=== PATIENT | male | born 1945 | race Caucasian/White ===

== ENCOUNTER 2021-02-13 20:49 | Inpatient (IN) | payer MEDICARE, BC ==
[2021-02-13 21:32] LABS: Hemoglobin 13.2 g/dL (13.5-17.5); Mean Corpuscular HGB CONC 34.1 g/dL (32.0-36.0); Mean Corpuscular Hemoglobin 31.1 pg (27.0-33.0); Mean Corpuscular Volume 91.1 fl (81.2-95.1); Mean Platelet Volume 10.2 fl (7.4-10.4); Platelet Count 406 10x3/uL (150-450); Red Blood Cell (RBC) Count 4.25 10x6/uL (4.32-5.72); White Blood Cell (WBC) Count 20.5 10x3/uL (3.5-10.5)
[2021-02-13 21:50] LABS: ALT (SGPT) Less than 6 U/L (8-55); AST (SGOT) 8 U/L (5-34); Albumin 3.6 g/dL (3.4-4.8); Alkaline Phosphatase 70 U/L (40-110); Anion Gap 10 mmol/L (10-20); BUN (Urea Nitrogen) 20 mg/dL (8.4-25.7); Band 2 % (5-11); Bilirubin, Total 1.2 mg/dL (0.2-1.2); CK (CPK) 89 U/L (30-200); Calc. Creatinine Clearance 0 mL/min (70-130); Calcium 8.5 mg/dL (7.8-10.44); Carbon Dioxide 24 mmol/L (23-31); Chloride 104 mmol/L (98-107); Globulin 2.4 g/dL (2.4-3.5); Glucose 141 mg/dL (83-110); Lymphocytes 15 % (21-51); Monocytes 10 % (0-10); Potassium 3.4 mmol/L (3.5-5.1); Reactive Lymphocytes 1 % (0-10); Sodium 135 mmol/L (136-145)
[2021-02-13 21:51] LABS: Neutrophil 72 % (42-75)
[2021-02-13 21:52] LABS: Large Platelets MODERATE
[2021-02-13 21:53] LABS: MDiff Complete? YES; Platelet Morphology Comment Appears Increased; RBC Morphology Normal
[2021-02-13] MEDS ORDERED: Meropenem 2 GM, Admixture Fee 1 EACH in Sodium Chloride 0.9% 100 ML IVPB SCH (23:30)
[2021-02-13 23:38] LABS: Bilirubin Neg (Negative); Blood, Urine 150 (Negative); Clarity Slightly Cloudy (Clear); Glucose, Urine (Dipstick) Normal (Negative); Ketone, Urine Negative (Negative); Leukocyte 500 (Negative); Nitrite Negative (Negative); Protein, Urine (Dipstick) 30 mg/dl (Neg-Trace); Specific Gravity, Urine 1.005 (1.002-1.036)
[2021-02-14 00:19] LABS: Bacteria/HPF 3+ HPF (None Seen); Squamous Epithelial 0-3 HPF (0-3)
[2021-02-14] MEDS ORDERED: Senokot S 8.6-50 MG TAB PO PRN (00:21)
[2021-02-14] MEDS ORDERED: Calcium Carbonate 500 MG ChewTAB PO PRN (00:21)
[2021-02-14] MEDS ORDERED: Guaifenesin DM 100-10/5 ML UDCUP PO PRN (00:21)
[2021-02-14] MEDS ORDERED: Communication Order-Pharmacy FS PRN (00:21)
[2021-02-14] MEDS ORDERED: Ondansetron PF 4 MG/2 ML Vial IVP PRN (00:21)
[2021-02-14] MEDS ORDERED: Acetaminophen 325 MG TAB PO PRN (00:21)
[2021-02-14 00:39] LABS: SARS-CoV-2 NAA Rapid Test Not Detected (NotDetected)
[2021-02-14 02:32] VITALS: BMI 26.4
[2021-02-14] MEDS ORDERED: Vancomycin HCl 1 GM in Sodium Chloride 0.9% 250 ML 250 ML IVPB SCH ×2 (03:15→16:00)
[2021-02-14] MEDS ORDERED: Potassium Chloride 20 MEQ TAB PO SCH (03:15)
[2021-02-14 03:20] LABS: Legionella Urinary Ag Negative (Negative); Strep pneumo Urine Ag NEGATIVE (NEGATIVE)
[2021-02-14] MEDS ORDERED: Potassium Chloride 20 MEQ TAB ONE (03:39)
[2021-02-14] MEDS: Lactated Ringer's 1,000 ML IV SCH ×2 (03:49→16:39)
[2021-02-14 05:07] LABS: #Basophils 0.1 10x3/uL (0.0-0.2); #Eosinphils 0.1 10x3/uL (0.0-0.5); #Neutrophils 12.2 10x3/uL (1.5-8.4); %Basophils 0.5 % (0.0-2.0); %Eosinophils 0.8 % (0.0-6.0); %Lymphocytes 12.8 % (18.0-47.0); %Monocytes 6.2 % (0.0-10.0); %Neutrophils 79.2 % (40.0-75.0); Hemoglobin 13.4 g/dL (13.5-17.5); Mean Corpuscular HGB CONC 32.8 g/dL (32.0-36.0); Mean Corpuscular Hemoglobin 30.6 pg (27.0-33.0); Mean Corpuscular Volume 93.2 fl (81.2-95.1); Mean Platelet Volume 10.9 fl (7.4-10.4); Platelet Count 346 10x3/uL (150-450); RBC Distribution Width 15.2 % (11.5-14.5); Red Blood Cell (RBC) Count 4.38 10x6/uL (4.32-5.72); White Blood Cell (WBC) Count 15.3 10x3/uL (3.5-10.5)
[2021-02-14 05:15] LABS: Anion Gap 10 mmol/L (10-20); BUN (Urea Nitrogen) 16 mg/dL (8.4-25.7); Calc. Creatinine Clearance 97 mL/min (70-130); Calcium 8.3 mg/dL (7.8-10.44); Carbon Dioxide 22 mmol/L (23-31); Chloride 108 mmol/L (98-107); Glucose 100 mg/dL (83-110); Potassium 3.2 mmol/L (3.5-5.1); Sodium 137 mmol/L (136-145)
[2021-02-14] MEDS ORDERED: Cefepime 2 GM in Sodium Chloride 0.9% 100 ML IVPB SCH (06:00)
[2021-02-14] MEDS ORDERED: FLU VACC QS2021-22(65YR UP)/PF 240 MCG/0.7 ML SYRINGE IM ONE (06:15)
[2021-02-14] MEDS ORDERED: Carbidopa/Levodopa 25-100 mg Tablet PO SCH (09:00)
[2021-02-14] MEDS: Famotidine 20 MG TAB PO SCH ×2 (09:16→20:33)
[2021-02-14] MEDS: Aspirin 81 mg Enteric Coated Tablet PO SCH (09:16)
[2021-02-14] MEDS: Enoxaparin Sodium 40 MG/0.4 ML SYRINGE SC SCH (09:17)
[2021-02-14] MEDS ORDERED: Electrolyte Replacement Protocol 1 EACH FS PRN (10:00)
[2021-02-14] MEDS ORDERED: Magnesium 2 GM/50 ML 2 GM in Premix Bag 1 BAG IVPB SCH (12:00)
[2021-02-14] MEDS: Carbidopa/Levodopa 25-100 mg Tablet PO SCH (15:54)
[2021-02-14] MEDS: Cefepime 2 GM in Sodium Chloride 0.9% 100 ML IVPB SCH (17:04)
[2021-02-14] MEDS: Baclofen 10 MG TAB PO SCH (20:31)
[2021-02-14] MEDS: clonazePAM 1 MG TAB PO SCH (20:31)
[2021-02-14] MEDS: Atorvastatin Calcium 10 MG TAB PO SCH (20:32)
[2021-02-14] MEDS: Gabapentin 300 MG CAP PO SCH (20:32)
[2021-02-14] MEDS: Carvedilol 3.125 MG TAB PO SCH (20:33)
[2021-02-15] MEDS: Lactated Ringer's 1,000 ML IV SCH (00:39)
[2021-02-15 06:20] LABS: #Monocytes 0.5 10x3/uL (0.0-1.1); #Neutrophils 4.6 10x3/uL (1.5-8.4); %Basophils 0.7 % (0.0-2.0); %Eosinophils 0.7 % (0.0-6.0); %Monocytes 8.1 % (0.0-10.0); Hemoglobin 12.2 g/dL (13.5-17.5); Mean Corpuscular HGB CONC 32.9 g/dL (32.0-36.0); Mean Corpuscular Hemoglobin 30.7 pg (27.0-33.0); Mean Corpuscular Volume 93.2 fl (81.2-95.1); Mean Platelet Volume 10.5 fl (7.4-10.4); Platelet Count 356 10x3/uL (150-450); RBC Distribution Width 14.9 % (11.5-14.5); Red Blood Cell (RBC) Count 3.98 10x6/uL (4.32-5.72); White Blood Cell (WBC) Count 5.9 10x3/uL (3.5-10.5)
[2021-02-15] MEDS: Cefepime 2 GM in Sodium Chloride 0.9% 100 ML IVPB SCH ×2 (06:34→16:51)
[2021-02-15 06:35] LABS: ALT (SGPT) 8 U/L (8-55); AST (SGOT) 10 U/L (5-34); Albumin 3.1 g/dL (3.4-4.8); Alkaline Phosphatase 60 U/L (40-110); Anion Gap 12 mmol/L (10-20); BUN (Urea Nitrogen) 11 mg/dL (8.4-25.7); Bilirubin, Total 0.7 mg/dL (0.2-1.2); Calc. Creatinine Clearance 109 mL/min (70-130); Calcium 7.7 mg/dL (7.8-10.44); Carbon Dioxide 22 mmol/L (23-31); Chloride 108 mmol/L (98-107); Globulin 2.5 g/dL (2.4-3.5); Glucose 111 mg/dL (83-110); Phosphorus 2.3 mg/dL (2.3-4.7); Potassium 3.8 mmol/L (3.5-5.1); Protein, Total 5.6 g/dL (5.8-8.1); Sodium 138 mmol/L (136-145)
[2021-02-15] MEDS: Carbidopa/Levodopa 25-100 mg Tablet PO SCH ×3 (06:35→16:49)
[2021-02-15] MEDS ORDERED: Magnesium 2 GM/50 ML 2 GM in Premix Bag 1 BAG IVPB SCH (07:30)
[2021-02-15] MEDS: clonazePAM 1 MG TAB PO SCH ×3 (07:49→20:47)
[2021-02-15] MEDS: Baclofen 10 MG TAB PO SCH ×3 (07:49→20:46)
[2021-02-15] MEDS: Carvedilol 3.125 MG TAB PO SCH ×2 (07:50→20:46)
[2021-02-15] MEDS: Famotidine 20 MG TAB PO SCH ×2 (07:50→20:46)
[2021-02-15] MEDS: Gabapentin 300 MG CAP PO SCH ×3 (07:51→20:46)
[2021-02-15] MEDS: Cholecalciferol 1,000 UNITS (25 MCG) TAB PO SCH (07:51)
[2021-02-15] MEDS: Enoxaparin Sodium 40 MG/0.4 ML SYRINGE SC SCH (07:52)
[2021-02-15] MEDS: Aspirin 81 mg Enteric Coated Tablet PO SCH (07:52)
[2021-02-15] MEDS ORDERED: Tamsulosin HCl 0.4 MG CAP PO SCH (16:45)
[2021-02-15] MEDS: Atorvastatin Calcium 10 MG TAB PO SCH (20:46)
[2021-02-16] MEDS: Cefepime 2 GM in Sodium Chloride 0.9% 100 ML IVPB SCH (04:30)
[2021-02-16 05:53] LABS: Anion Gap 12 mmol/L (10-20); BUN (Urea Nitrogen) 11 mg/dL (8.4-25.7); Calc. Creatinine Clearance 111 mL/min (70-130); Carbon Dioxide 22 mmol/L (23-31); Chloride 107 mmol/L (98-107); Glucose 102 mg/dL (83-110); Magnesium 2.1 mg/dL (1.6-2.6); Sodium 137 mmol/L (136-145)
[2021-02-16] MEDS: Carbidopa/Levodopa 25-100 mg Tablet PO SCH ×3 (06:43→17:31)
[2021-02-16] MEDS: clonazePAM 1 MG TAB PO SCH ×3 (09:50→22:09)
[2021-02-16] MEDS: Cholecalciferol 1,000 UNITS (25 MCG) TAB PO SCH (09:50)
[2021-02-16] MEDS: Carvedilol 3.125 MG TAB PO SCH ×2 (09:50→22:16)
[2021-02-16] MEDS: Gabapentin 300 MG CAP PO SCH ×2 (09:50→15:40)
[2021-02-16] MEDS: Enoxaparin Sodium 40 MG/0.4 ML SYRINGE SC SCH (09:50)
[2021-02-16] MEDS: Famotidine 20 MG TAB PO SCH ×2 (09:50→22:09)
[2021-02-16] MEDS: Baclofen 10 MG TAB PO SCH ×3 (09:50→22:08)
[2021-02-16] MEDS: Aspirin 81 mg Enteric Coated Tablet PO SCH (09:50)
[2021-02-16] MEDS: Tamsulosin HCl 0.4 MG CAP PO SCH (09:53)
[2021-02-16 15:48] LABS: Actual Bicarbonate (HCO3a) 26.1 mEq/L (22-28); Base Excess (BEa) 2.2 mEq/L (-2.0 to +3.0); CO2 Tension 38.4 mmHg (35.0-45.0); Calcium, Ionized (arterial) 1.14 mmol/L (1.12-1.30); Carboxyhemoglobin (COHb) 0.4 gm% (0.0-3.0); Hemoglobin (Hb) 13.3 g/dL (14.0-18.0); O2 Tension (PaO2), arterial 56.2 mmHg (> 70.0); Potassium - ABG Lab 3.7 mmol/L (3.70-5.30); Puncture Site RBA; pH, Arterial 7.45 (7.35-7.45)
[2021-02-16] MEDS ORDERED: clonazePAM 1 MG TAB PO SCH (16:00)
[2021-02-16] MEDS ORDERED: Gabapentin 300 MG CAP PO SCH ×2 (16:00→21:00)
[2021-02-16] MEDS: cefTRIAXone\\ROCEPHIN 2 GM in Sodium Chloride 0.9% 100 ML IVPB SCH (17:32)
[2021-02-16] MEDS ORDERED: Gabapentin 100 MG CAP PO SCH (18:00)
[2021-02-16] MEDS: Atorvastatin Calcium 10 MG TAB PO SCH (22:08)
[2021-02-16] MEDS: Gabapentin 100 MG CAP PO SCH (22:08)
[2021-02-17] MEDS: Carbidopa/Levodopa 25-100 mg Tablet PO SCH ×3 (06:39→17:11)
[2021-02-17] MEDS ORDERED: Enoxaparin Sodium 40 MG/0.4 ML SYRINGE ONE (10:17)
[2021-02-17] MEDS: Enoxaparin Sodium 40 MG/0.4 ML SYRINGE SC SCH (10:28)
[2021-02-17] MEDS: Cholecalciferol 1,000 UNITS (25 MCG) TAB PO SCH (10:29)
[2021-02-17] MEDS: Baclofen 10 MG TAB PO SCH ×3 (10:29→20:34)
[2021-02-17] MEDS: Carvedilol 3.125 MG TAB PO SCH (10:30)
[2021-02-17] MEDS: Gabapentin 100 MG CAP PO SCH ×3 (10:30→20:35)
[2021-02-17] MEDS: Famotidine 20 MG TAB PO SCH ×2 (10:31→20:36)
[2021-02-17] MEDS: clonazePAM 1 MG TAB PO SCH ×2 (10:31→17:11)
[2021-02-17] MEDS: Tamsulosin HCl 0.4 MG CAP PO SCH (10:31)
[2021-02-17] MEDS: Aspirin 81 mg Enteric Coated Tablet PO SCH (10:32)
[2021-02-17] MEDS: cefTRIAXone\\ROCEPHIN 2 GM in Sodium Chloride 0.9% 100 ML IVPB SCH (17:12)
[2021-02-17 17:47] LABS: Anion Gap 13 mmol/L (10-20); BUN (Urea Nitrogen) 14 mg/dL (8.4-25.7); Calc. Creatinine Clearance 125 mL/min (70-130); Calcium 8.4 mg/dL (7.8-10.44); Carbon Dioxide 22 mmol/L (23-31); Chloride 106 mmol/L (98-107); Glucose 99 mg/dL (83-110); Potassium 4.5 mmol/L (3.5-5.1); Sodium 136 mmol/L (136-145)
[2021-02-17] MEDS: Atorvastatin Calcium 10 MG TAB PO SCH (20:34)
[2021-02-17] MEDS: clonazePAM 0.5 MG TAB PO SCH (20:36)
[2021-02-18 08:32] LABS: #Eosinphils 0.2 10x3/uL (0.0-0.5); #Monocytes 0.6 10x3/uL (0.0-1.1); #Neutrophils 5.6 10x3/uL (1.5-8.4); %Basophils 0.5 % (0.0-2.0); %Eosinophils 2.3 % (0.0-6.0); %Lymphocytes 13.6 % (18.0-47.0); %Monocytes 7.8 % (0.0-10.0); %Neutrophils 75.1 % (40.0-75.0); Hemoglobin 13.2 g/dL (13.5-17.5); Mean Corpuscular HGB CONC 33.1 g/dL (32.0-36.0); Mean Corpuscular Hemoglobin 30.4 pg (27.0-33.0); Mean Corpuscular Volume 91.9 fl (81.2-95.1); Mean Platelet Volume 10.1 fl (7.4-10.4); Platelet Count 419 10x3/uL (150-450); RBC Distribution Width 14.3 % (11.5-14.5); Red Blood Cell (RBC) Count 4.34 10x6/uL (4.32-5.72); White Blood Cell (WBC) Count 7.4 10x3/uL (3.5-10.5)
[2021-02-18] MEDS: Gabapentin 100 MG CAP PO SCH ×3 (08:39→21:13)
[2021-02-18] MEDS: Cholecalciferol 1,000 UNITS (25 MCG) TAB PO SCH (08:40)
[2021-02-18] MEDS: Carbidopa/Levodopa 25-100 mg Tablet PO SCH ×3 (08:40→16:51)
[2021-02-18] MEDS: Enoxaparin Sodium 40 MG/0.4 ML SYRINGE SC SCH (08:40)
[2021-02-18] MEDS: clonazePAM 0.5 MG TAB PO SCH ×3 (08:40→21:11)
[2021-02-18] MEDS: Famotidine 20 MG TAB PO SCH ×2 (08:40→21:14)
[2021-02-18 08:41] LABS: ALT (SGPT) 14 U/L (8-55); AST (SGOT) 12 U/L (5-34); Albumin 3.3 g/dL (3.4-4.8); Alkaline Phosphatase 63 U/L (40-110); Anion Gap 11 mmol/L (10-20); BUN (Urea Nitrogen) 13 mg/dL (8.4-25.7); Bilirubin, Total 0.5 mg/dL (0.2-1.2); Calc. Creatinine Clearance 115 mL/min (70-130); Calcium 8.5 mg/dL (7.8-10.44); Carbon Dioxide 28 mmol/L (23-31); Chloride 104 mmol/L (98-107); Globulin 2.9 g/dL (2.4-3.5); Glucose 120 mg/dL (83-110); Potassium 4.2 mmol/L (3.5-5.1); Protein, Total 6.2 g/dL (5.8-8.1); Sodium 139 mmol/L (136-145)
[2021-02-18] MEDS: Tamsulosin HCl 0.4 MG CAP PO SCH (08:41)
[2021-02-18] MEDS: Aspirin 81 mg Enteric Coated Tablet PO SCH (08:41)
[2021-02-18] MEDS: Baclofen 10 MG TAB PO SCH ×3 (08:41→21:14)
[2021-02-18 09:01] LABS: Syphilis Antibody Nonreactive (Nonreactive); Syphilis Antibody Index 0.08 S/CO (<1.00 Non-Reactive)
[2021-02-18] MEDS: cefTRIAXone\\ROCEPHIN 2 GM in Sodium Chloride 0.9% 100 ML IVPB SCH ×2 (15:12→15:32)
[2021-02-18] MEDS: Atorvastatin Calcium 10 MG TAB PO SCH (21:14)
[2021-02-19 05:27] LABS: HIV (1/2) Antibody/Antigen Non-Reactive (NonReactive); HIV 1/2 INDEX 0.09 S/CO (<1.00)
[2021-02-19] MEDS ORDERED: Amlodipine 5 MG TAB PO SCH (09:00)
[2021-02-19] MEDS: clonazePAM 0.5 MG TAB PO SCH ×2 (09:19→15:44)
[2021-02-19] MEDS: Gabapentin 100 MG CAP PO SCH ×2 (09:19→15:44)
[2021-02-19] MEDS: Cholecalciferol 1,000 UNITS (25 MCG) TAB PO SCH (09:21)
[2021-02-19] MEDS: Famotidine 20 MG TAB PO SCH (09:21)
[2021-02-19] MEDS: Carbidopa/Levodopa 25-100 mg Tablet PO SCH ×4 (09:23→15:45)
[2021-02-19] MEDS: Enoxaparin Sodium 40 MG/0.4 ML SYRINGE SC SCH ×2 (09:24→09:43)
[2021-02-19] MEDS: Aspirin 81 mg Enteric Coated Tablet PO SCH (09:24)
[2021-02-19] MEDS: Baclofen 10 MG TAB PO SCH ×2 (09:24→15:43)
[2021-02-19] MEDS: Tamsulosin HCl 0.4 MG CAP PO SCH (09:24)
[2021-02-19 20:45] VITALS: TEMP 97.6
[2021-02-19 20:49] VITALS: BP 128/68
== END 2021-02-19 17:25 | DRG 871 ==
LOC: CSHERS 20:49 → CSHTELE 02-14 02:29
PROVIDERS: ADMIT Student in an Organized Health Care Education/Training Program; ATTEND Family Medicine
DX: A41.9 Sepsis, unspecified organism (principal); G93.41 Metabolic encephalopathy; N39.0 Urinary tract infection, site not specified; J90 Pleural effusion, not elsewhere classified; Z20.822 Contact with and (suspected) exposure to COVID-19; G20 Parkinson's disease; R00.1 Bradycardia, unspecified; E86.0 Dehydration; N18.2 Chronic kidney disease, stage 2 (mild); E87.6 Hypokalemia; I12.9 Hypertensive chronic kidney disease with stage 1 through stage 4 chronic kidney disease, or unspecified chronic kidney disease; E78.5 Hyperlipidemia, unspecified; Z86.73 Personal history of transient ischemic attack (TIA), and cerebral infarction without residual deficits
CPT/HCPCS: 36415; 36600; 70450; 70551; 71045; 71250; 74170; 76770; 80048; 80053; 81003; 81015; 82140; 82550; 82805; 83605; 83735; 83880; 84100; 84132; 84145; 84443; 84484; 85025; 86780; 87040; 87077; 87086; 87186; 87389; 87449; 87899; 93005; 93010; 94760; 94762; J0692; J0696; J1650; J2185; J3370; J3475; J3490; J7050; J7120; U0002

== ENCOUNTER 2021-10-12 10:38 | Outpatient (CLI) | payer MEDICARE, BC ==
[2021-10-12] MEDS ORDERED: Iopamidol 300 61% 100 ML VIAL FS ONE (12:12)
== END 2021-10-12 10:39 | disposition home or self-care (01) ==
LOC: CSHCT 10:38
PROVIDERS: ATTEND Urology
DX: N28.89 Other specified disorders of kidney and ureter (principal)
CPT/HCPCS: 74170; 82565; Q9967

== ENCOUNTER 2022-02-02 12:09 | Outpatient (CLI) | payer MEDICARE, BC | END 2022-02-02 12:10 | disposition home or self-care (01) | LOC: CSHCT 12:09 | PROVIDERS: ATTEND Otolaryngology Plastic Surgery within the Head & Neck | DX: J33.0 Polyp of nasal cavity (principal); J34.2 Deviated nasal septum ==

== ENCOUNTER 2022-03-09 12:32 | Emergency (ER) | payer MEDICARE, BC ==
[2022-03-09] MEDS ORDERED: Iopamidol 300 61% 100 ML VIAL FS ONE (13:21)
[2022-03-09 14:34] LABS: #Basophils 0.1 10x3/uL (0.0-0.2); #Eosinphils 0.1 10x3/uL (0.0-0.5); #Monocytes 1.3 10x3/uL (0.0-1.1); #Neutrophils 10.5 10x3/uL (1.5-8.4); %Basophils 0.6 % (0.0-2.0); %Eosinophils 0.9 % (0.0-6.0); %Lymphocytes 9.8 % (18.0-47.0); %Monocytes 9.4 % (0.0-10.0); %Neutrophils 78.9 % (40.0-75.0); Hemoglobin 15.4 g/dL (13.5-17.5); Mean Corpuscular HGB CONC 33.8 g/dL (32.0-36.0); Mean Corpuscular Hemoglobin 31.2 pg (27.0-33.0); Mean Corpuscular Volume 92.5 fl (81.2-95.1); Mean Platelet Volume 10.2 fl (7.4-10.4); Platelet Count 494 10x3/uL (150-450); RBC Distribution Width 14.4 % (11.5-14.5); Red Blood Cell (RBC) Count 4.93 10x6/uL (4.32-5.72); White Blood Cell (WBC) Count 13.3 10x3/uL (3.5-10.5)
[2022-03-09 14:45] LABS: Anion Gap 14 mmol/L (10-20); BUN (Urea Nitrogen) 16 mg/dL (8.4-25.7); Calc. Creatinine Clearance 0 mL/min (70-130); Calcium 9.1 mg/dL (7.8-10.44); Carbon Dioxide 23 mmol/L (23-31); Chloride 107 mmol/L (98-107); Estimated GFR 74; Glucose 102 mg/dL (83-110); Potassium 3.8 mmol/L (3.5-5.1); Sodium 140 mmol/L (136-145)
[2022-03-09] MEDS ORDERED: Clindamycin/D5W 600 MG in Premix Bag 1 BAG IVPB SCH (16:30)
== END 2022-03-09 17:31 | disposition home or self-care (01) ==
LOC: CSHERS 12:32
DX: K04.7 Periapical abscess without sinus (principal); Z87.09 Personal history of other diseases of the respiratory system; I10 Essential (primary) hypertension
CPT/HCPCS: 36415; 70487; 80048; 85025; 96365; J3490; Q9967

== ENCOUNTER 2022-03-16 19:50 | Emergency (ER) | payer MEDICARE, BC ==
[2022-03-16 20:29] LABS: #Monocytes 0.1 10x3/uL (0.0-1.1); #Neutrophils 11.9 10x3/uL (1.5-8.4); %Basophils 0.2 % (0.0-2.0); %Lymphocytes 2.4 % (18.0-47.0); %Monocytes 0.4 % (0.0-10.0); %Neutrophils 96.8 % (40.0-75.0); Hemoglobin 15.1 g/dL (13.5-17.5); Mean Corpuscular HGB CONC 33.8 g/dL (32.0-36.0); Mean Corpuscular Hemoglobin 31.3 pg (27.0-33.0); Mean Corpuscular Volume 92.7 fl (81.2-95.1); Platelet Count 545 10x3/uL (150-450); RBC Distribution Width 14.1 % (11.5-14.5); Red Blood Cell (RBC) Count 4.82 10x6/uL (4.32-5.72); White Blood Cell (WBC) Count 12.2 10x3/uL (3.5-10.5)
[2022-03-16] MEDS ORDERED: Oxymetazoline HCl 0.05% ( 15 ML ) ONE (20:32)
[2022-03-16] MEDS ORDERED: Tranexamic Acid 1,000 MG/10 ML VIAL ONE (23:57)
[2022-03-17] MEDS ORDERED: Silver Nitrate Application 1 EACH ONE ×2 (02:03→07:03)
[2022-03-17] MEDS ORDERED: Fentanyl 100 MCG/2 ML VIAL ONE ×2 (02:05→08:29)
[2022-03-17] MEDS ORDERED: Bacitracin 1 PK ONE (07:11)
[2022-03-17] MEDS ORDERED: EPINEPHrine 1 MG/ML AMP ONE (08:28)
[2022-03-17] MEDS ORDERED: PROPOFOL 40 ML ONE (08:28)
[2022-03-17] MEDS ORDERED: Succinylcholine 200 MG/10 ml SYRINGE FS ONE (08:29)
[2022-03-17] MEDS ORDERED: Rocuronium Bromide 10 MG/ML (10ML VIAL) ONE (08:29)
[2022-03-17] MEDS ORDERED: Lidocaine 1% PF 5 ML VIAL ONE (08:29)
[2022-03-17] MEDS ORDERED: Ondansetron PF 4 MG/2 ML Vial ONE (09:05)
[2022-03-17] MEDS ORDERED: Dexamethasone 20 MG/5 ML VIAL ONE ×2 (09:05→09:14)
[2022-03-17] MEDS ORDERED: Oxymetazoline HCl 0.05% ( 15 ML ) ONE (09:07)
[2022-03-17] MEDS ORDERED: Glycopyrrolate 0.2 MG/ML 5 ML SYRINGE ONE (09:18)
== END 2022-03-17 09:04 | disposition admitted as inpatient to this hospital (09) ==
LOC: CSHERS 19:50
DX: R04.0 Epistaxis (principal); I10 Essential (primary) hypertension; Z86.73 Personal history of transient ischemic attack (TIA), and cerebral infarction without residual deficits
CPT/HCPCS: 30903; 71045; 96374; J0171; J1100; J2405; J2704; J3010

== ENCOUNTER 2022-11-22 09:44 | Outpatient (CLI) | payer MEDICARE, BC | END 2022-11-22 09:45 | disposition home or self-care (01) | LOC: CSHCT 09:44 | PROVIDERS: ATTEND Urology | DX: N28.89 Other specified disorders of kidney and ureter (principal) | CPT/HCPCS: 74170; 82565 ==

== ENCOUNTER 2023-04-09 17:40 | Emergency (ER) | payer MEDICARE, BC ==
[2023-04-09 18:26] LABS: #Basophils 0.1 10x3/uL (0.0-0.2); #Eosinphils 0.3 10x3/uL (0.0-0.5); #Monocytes 0.7 10x3/uL (0.0-1.1); #Neutrophils 5.7 10x3/uL (1.5-8.4); %Basophils 0.8 % (0.0-2.0); %Eosinophils 3.1 % (0.0-6.0); %Lymphocytes 21.5 % (18.0-47.0); %Monocytes 8.6 % (0.0-10.0); %Neutrophils 65.8 % (40.0-75.0); Hemoglobin 14.7 g/dL (13.5-17.5); Mean Corpuscular HGB CONC 34.2 g/dL (32.0-36.0); Mean Corpuscular Hemoglobin 32.1 pg (27.0-33.0); Mean Corpuscular Volume 93.9 fl (81.2-95.1); Mean Platelet Volume 10.4 fl (7.4-10.4); Platelet Count 420 10x3/uL (150-450); Red Blood Cell (RBC) Count 4.58 10x6/uL (4.32-5.72); White Blood Cell (WBC) Count 8.6 10x3/uL (3.5-10.5)
[2023-04-09 19:01] LABS: ALT (SGPT) 7 U/L (8-55); AST (SGOT) 13 U/L (5-34); Albumin 3.8 g/dL (3.4-4.8); Alkaline Phosphatase 81 U/L (40-110); Anion Gap 12 mmol/L (10-20); BUN (Urea Nitrogen) 12 mg/dL (8.4-25.7); Bilirubin, Total 0.6 mg/dL (0.2-1.2); Calc. Creatinine Clearance 0 mL/min (70-130); Calcium 8.6 mg/dL (7.8-10.44); Carbon Dioxide 24 mmol/L (23-31); Chloride 111 mmol/L (98-107); Estimated GFR 89; Globulin 2.4 g/dL (2.4-3.5); Glucose 109 mg/dL (83-110); Magnesium 1.9 mg/dL (1.6-2.6); Potassium 3.5 mmol/L (3.5-5.1); Protein, Total 6.2 g/dL (5.8-8.1); Sodium 143 mmol/L (136-145)
[2023-04-09 19:49] LABS: Bilirubin Neg (Negative); Blood, Urine Negative (Negative); Clarity Clear (Clear); Glucose, Urine (Dipstick) Normal (Negative); Ketone, Urine 5 mg/dL (Negative); Leukocyte Negative (Negative); Nitrite Negative (Negative); Protein, Urine (Dipstick) 15 mg/dl (Neg-Trace); Urobilinogen Normal mg/dL (Less than 2)
[2023-04-09 20:15] LABS: CAUTI Indications for Culture Alt mental st,lethar
[2023-04-09 20:17] LABS: Bacteria/HPF None Seen HPF (None Seen); Mucous/LPF 2+ LPF (<2+); Squamous Epithelial 0-3 HPF (0-3)
[2023-04-09 20:18] LABS: RBC/HPF None Seen HPF (0-3)
[2023-04-09 20:19] LABS: Urine Culture Reflex No No
== END 2023-04-09 20:56 | disposition home or self-care (01) ==
LOC: CSHERS 17:40
DX: F03.90 Unspecified dementia, unspecified severity, without behavioral disturbance, psychotic disturbance, mood disturbance, and anxiety (principal); R53.1 Weakness; I10 Essential (primary) hypertension; Z79.82 Long term (current) use of aspirin; Z86.73 Personal history of transient ischemic attack (TIA), and cerebral infarction without residual deficits; Z79.899 Other long term (current) drug therapy
CPT/HCPCS: 36415; 70450; 71045; 80053; 81001; 83735; 85025; 87086; 93005

== ENCOUNTER 2023-04-11 21:51 | Inpatient (IN) | payer MEDICARE, BC ==
[2023-04-11 23:22] LABS: #Basophils 0.1 10x3/uL (0.0-0.2); #Eosinphils 0.2 10x3/uL (0.0-0.5); #Monocytes 0.8 10x3/uL (0.0-1.1); #Neutrophils 4.6 10x3/uL (1.5-8.4); %Basophils 0.7 % (0.0-2.0); %Eosinophils 3.2 % (0.0-6.0); %Monocytes 10.2 % (0.0-10.0); %Neutrophils 61.6 % (40.0-75.0); Hematocrit 42.2 % (38.8-50.0); Hemoglobin 14.4 g/dL (13.5-17.5); Mean Corpuscular HGB CONC 34.1 g/dL (32.0-36.0); Mean Corpuscular Hemoglobin 32.1 pg (27.0-33.0); Mean Platelet Volume 10.4 fl (7.4-10.4); Platelet Count 391 10x3/uL (150-450); RBC Distribution Width 15.5 % (11.5-14.5); Red Blood Cell (RBC) Count 4.49 10x6/uL (4.32-5.72); White Blood Cell (WBC) Count 7.4 10x3/uL (3.5-10.5)
[2023-04-11 23:41] LABS: ALT (SGPT) Less than 7 U/L (8-55); AST (SGOT) 18 U/L (5-34); Albumin 3.5 g/dL (3.4-4.8); Alkaline Phosphatase 71 U/L (40-110); Anion Gap 14 mmol/L (10-20); BUN (Urea Nitrogen) 11 mg/dL (8.4-25.7); Bilirubin, Total 0.5 mg/dL (0.2-1.2); Calc. Creatinine Clearance 0 mL/min (70-130); Calcium 8.4 mg/dL (7.8-10.44); Carbon Dioxide 23 mmol/L (23-31); Chloride 111 mmol/L (98-107); Estimated GFR 89; Globulin 2.4 g/dL (2.4-3.5); Glucose 100 mg/dL (83-110); Lipase 9 U/L (8-78); Potassium 3.9 mmol/L (3.5-5.1); Protein, Total 5.9 g/dL (5.8-8.1); Sodium 144 mmol/L (136-145)
[2023-04-11 23:47] LABS: Troponin I Less than 0.010 ng/mL (< 0.028)
[2023-04-12] MEDS ORDERED: Cefepime 2 GM VIAL ONE (00:36)
[2023-04-12 00:46] LABS: Bilirubin Neg (Negative); Blood, Urine 250 (Negative); Glucose, Urine (Dipstick) Normal (Negative); Ketone, Urine 5 mg/dL (Negative); Leukocyte Negative (Negative); Nitrite Negative (Negative); Protein, Urine (Dipstick) 30 mg/dl (Neg-Trace); Urobilinogen Normal mg/dL (Less than 2)
[2023-04-12 00:53] LABS: Clarity Clear (Clear)
[2023-04-12 01:01] LABS: Bacteria/HPF None Seen HPF (None Seen); CAUTI Indications for Culture Dysuria,urgency,freq; Squamous Epithelial 0-3 HPF (0-3); WBC/HPF 0-3 HPF (0-3)
[2023-04-12 01:02] LABS: Urine Culture Reflex No No
[2023-04-12] MEDS ORDERED: Vancomycin 1 GM VIAL ONE (01:24)
[2023-04-12] MEDS ORDERED: LevoFLOXacin 750 mg/D5W 150 ml Premix Bag ONE (01:25)
[2023-04-12] MEDS ORDERED: Calcium Carbonate 500 MG ChewTAB PO PRN (03:16)
[2023-04-12] MEDS ORDERED: Acetaminophen 325 MG TAB PO PRN (03:16)
[2023-04-12] MEDS ORDERED: Guaifenesin DM 100-10/5 ML UDCUP PO PRN (03:16)
[2023-04-12] MEDS ORDERED: Senokot S 8.6-50 MG TAB PO PRN (03:16)
[2023-04-12] MEDS ORDERED: Ondansetron PF 4 MG/2 ML Vial IVP PRN (03:16)
[2023-04-12] MEDS ORDERED: Polyethylene Glycol 3350 17 GM Packet PO PRN (03:20)
[2023-04-12 03:26] VITALS: BMI 25.7
[2023-04-12] MEDS ORDERED: clonazePAM 0.5 MG TAB ONE (03:27)
[2023-04-12] MEDS ORDERED: Carbidopa/Levodopa 25-100 mg Tablet PO SCH (03:30)
[2023-04-12] MEDS ORDERED: clonazePAM 0.5 MG TAB PO SCH (03:30)
[2023-04-12 05:06] LABS: Legionella Urinary Ag Negative (Negative); Strep pneumo Urine Ag NEGATIVE (NEGATIVE)
[2023-04-12] MEDS ORDERED: traMADol HCl 50 MG TAB ONE (05:31)
[2023-04-12] MEDS: traMADol HCl 50 MG TAB PO PRN ×2 (05:36→11:41)
[2023-04-12] MEDS: Enoxaparin 40 MG (0.4 mL) SYRINGE SC SCH (09:02)
[2023-04-12] MEDS: Aspirin 81 mg Enteric Coated Tablet PO SCH (09:02)
[2023-04-12] MEDS: Sertraline 100 MG TAB PO SCH (09:02)
[2023-04-12] MEDS: Cholecalciferol 1,000 UNITS (25 MCG) TAB PO SCH (09:02)
[2023-04-12] MEDS: Amlodipine 5 MG TAB PO SCH (09:03)
[2023-04-12] MEDS ORDERED: Iopamidol 300 61% 100 ML VIAL FS ONE (09:04)
[2023-04-12] MEDS: Docusate 100 MG CAP PO SCH ×2 (09:05→19:49)
[2023-04-12] MEDS: Mirabegron ER 25 MG ER.TAB PO SCH (11:40)
[2023-04-12] MEDS: Carbidopa/Levodopa 25-100 mg Tablet PO SCH ×3 (11:40→17:35)
[2023-04-12] MEDS: Baclofen 10 MG TAB PO SCH ×3 (11:42→19:48)
[2023-04-12] MEDS: clonazePAM 0.5 MG TAB PO SCH (13:22)
[2023-04-12] MEDS: Cefepime 2 GM in Sodium Chloride 0.9% 100 ML IVPB SCH (13:22)
[2023-04-12] MEDS ORDERED: FLU VACC QS2023(65UP)/MF59C/PF 60 MCG/0.5 ML SYRINGE IM ONE (13:30)
[2023-04-12] MEDS: Vancomycin 1 GM in Sodium Chloride 0.9% 250 ML 250 ML IVPB SCH (13:44)
[2023-04-12] MEDS: Gabapentin 100 MG CAP PO SCH ×3 (16:33→19:47)
[2023-04-12] MEDS: hydrALAZINE 25 MG TAB PO PRN (16:40)
[2023-04-12] MEDS: Tamsulosin HCl 0.4 MG CAP PO SCH (19:48)
[2023-04-12] MEDS: Atorvastatin Calcium 10 MG TAB PO SCH (19:48)
[2023-04-12] MEDS: clonazePAM 1 MG TAB PO SCH (19:49)
[2023-04-13] MEDS: Cefepime 2 GM in Sodium Chloride 0.9% 100 ML IVPB SCH (01:21)
[2023-04-13] MEDS: Vancomycin 1 GM in Sodium Chloride 0.9% 250 ML 250 ML IVPB SCH (03:12)
[2023-04-13 03:53] LABS: Anion Gap 13 mmol/L (10-20); BUN (Urea Nitrogen) 13 mg/dL (8.4-25.7); Calc. Creatinine Clearance 101 mL/min (70-130); Calcium 8.2 mg/dL (7.8-10.44); Carbon Dioxide 21 mmol/L (23-31); Chloride 110 mmol/L (98-107); Estimated GFR 92; Glucose 87 mg/dL (83-110); Potassium 3.9 mmol/L (3.5-5.1); Sodium 140 mmol/L (136-145)
[2023-04-13 03:55] LABS: #Basophils 0.1 10x3/uL (0.0-0.2); #Eosinphils 0.3 10x3/uL (0.0-0.5); #Monocytes 0.6 10x3/uL (0.0-1.1); #Neutrophils 4.6 10x3/uL (1.5-8.4); %Eosinophils 3.6 % (0.0-6.0); %Lymphocytes 20.7 % (18.0-47.0); %Monocytes 8.5 % (0.0-10.0); %Neutrophils 65.8 % (40.0-75.0); Hematocrit 40.4 % (38.8-50.0); Hemoglobin 13.7 g/dL (13.5-17.5); Mean Corpuscular HGB CONC 33.9 g/dL (32.0-36.0); Mean Corpuscular Hemoglobin 31.9 pg (27.0-33.0); Mean Platelet Volume 10.4 fl (7.4-10.4); Platelet Count 313 10x3/uL (150-450); RBC Distribution Width 15.4 % (11.5-14.5); White Blood Cell (WBC) Count 6.9 10x3/uL (3.5-10.5)
[2023-04-13] MEDS: traMADol HCl 50 MG TAB PO PRN (04:31)
[2023-04-13] MEDS: Baclofen 10 MG TAB PO SCH ×3 (08:23→20:46)
[2023-04-13] MEDS: Cholecalciferol 1,000 UNITS (25 MCG) TAB PO SCH (08:23)
[2023-04-13] MEDS: Mirabegron ER 25 MG ER.TAB PO SCH (08:23)
[2023-04-13] MEDS: Amlodipine 5 MG TAB PO SCH (08:24)
[2023-04-13] MEDS: Sertraline 100 MG TAB PO SCH (08:24)
[2023-04-13] MEDS: Carbidopa/Levodopa 25-100 mg Tablet PO SCH ×3 (08:24→15:54)
[2023-04-13] MEDS: clonazePAM 0.5 MG TAB PO SCH ×2 (08:25→12:41)
[2023-04-13] MEDS: Enoxaparin 40 MG (0.4 mL) SYRINGE SC SCH (08:25)
[2023-04-13] MEDS: Aspirin 81 mg Enteric Coated Tablet PO SCH (08:25)
[2023-04-13] MEDS: Gabapentin 100 MG CAP PO SCH ×3 (08:25→20:44)
[2023-04-13] MEDS: Docusate 100 MG CAP PO SCH ×2 (08:26→20:44)
[2023-04-13] MEDS: Cefdinir 300 MG CAP PO SCH ×2 (09:51→20:43)
[2023-04-13] MEDS: metroNIDAZOLE 250 MG TAB PO SCH ×3 (09:51→20:45)
[2023-04-13] MEDS: hydrALAZINE 25 MG TAB PO PRN (12:40)
[2023-04-13] MEDS: Atorvastatin Calcium 10 MG TAB PO SCH (20:46)
[2023-04-13] MEDS: Tamsulosin HCl 0.4 MG CAP PO SCH (20:46)
[2023-04-13] MEDS: clonazePAM 1 MG TAB PO SCH (20:46)
[2023-04-14] MEDS: Cholecalciferol 1,000 UNITS (25 MCG) TAB PO SCH (08:32)
[2023-04-14] MEDS: metroNIDAZOLE 250 MG TAB PO SCH ×2 (08:32→15:55)
[2023-04-14] MEDS: Enoxaparin 40 MG (0.4 mL) SYRINGE SC SCH (08:32)
[2023-04-14] MEDS: Carbidopa/Levodopa 25-100 mg Tablet PO SCH ×3 (08:32→15:56)
[2023-04-14] MEDS: Gabapentin 100 MG CAP PO SCH ×2 (08:33→15:55)
[2023-04-14] MEDS: Sertraline 100 MG TAB PO SCH (08:33)
[2023-04-14] MEDS: Cefdinir 300 MG CAP PO SCH (08:33)
[2023-04-14] MEDS: clonazePAM 0.5 MG TAB PO SCH ×2 (08:33→13:34)
[2023-04-14] MEDS: Amlodipine 5 MG TAB PO SCH (08:33)
[2023-04-14] MEDS: Baclofen 10 MG TAB PO SCH ×2 (08:33→15:55)
[2023-04-14] MEDS: Aspirin 81 mg Enteric Coated Tablet PO SCH (08:33)
[2023-04-14] MEDS: Mirabegron ER 25 MG ER.TAB PO SCH (08:34)
[2023-04-14] MEDS: Docusate 100 MG CAP PO SCH (09:16)
[2023-04-14 17:31] VITALS: BP 117/63; TEMP 97.8
== END 2023-04-14 17:30 | DRG 193 ==
LOC: CSHERS 21:51 → CSHERHOLD 04-12 00:56 → CSHICU 04-12 07:57 → CSHTELE 04-14 00:01
PROVIDERS: ADMIT Student in an Organized Health Care Education/Training Program; ATTEND Nurse Practitioner Family
PROC: 0T9B70Z Drainage of Bladder with Drainage Device, Via Natural or Artificial Opening (ICD-10-PCS; principal; 2023-04-12)
DX: J18.9 Pneumonia, unspecified organism (principal); G93.41 Metabolic encephalopathy; J96.21 Acute and chronic respiratory failure with hypoxia; Z88.8 Allergy status to other drugs, medicaments and biological substances; Z79.82 Long term (current) use of aspirin; Z79.899 Other long term (current) drug therapy; M19.90 Unspecified osteoarthritis, unspecified site; E78.5 Hyperlipidemia, unspecified; I10 Essential (primary) hypertension; Z98.890 Other specified postprocedural states; Z88.0 Allergy status to penicillin; Z86.73 Personal history of transient ischemic attack (TIA), and cerebral infarction without residual deficits; G20.A1 Parkinson's disease without dyskinesia, without mention of fluctuations; F02.80 Dementia in other diseases classified elsewhere, unspecified severity, without behavioral disturbance, psychotic disturbance, mood disturbance, and anxiety
CPT/HCPCS: 36415; 51701; 70450; 71045; 71260; 80048; 80053; 81001; 83605; 83690; 83735; 83880; 84145; 84484; 85025; 87040; 87081; 87086; 87449; 87899; 93005; 93306; 94760; 94762; 96361; 96365; 96367; J0692; J1650; J1956; J3370; J3490; J7050; Q9967